=== PATIENT | male | born 1950 | race Caucasian/White ===

== ENCOUNTER 2022-07-13 10:44 | Observation (INO) | payer MEDICARE, MEDICAID, SELFPAY ==
[2022-07-13] VITALS (12 sets, daily range): BP systolic 150–188; BP diastolic 68–86; PULSE 52–65; RESP 16–18; TEMP 36.6–37.3; O2SAT 93–98; BMI 27.3
[2022-07-13 12:25] LABS: Add Manual Diff / Slide Review NO; Basophils Absolute Auto 100 /uL (0-100); Basophils Percent Auto 0.6 % (0-2); Eosinophils Absolute Auto 100 /uL (0-450); Eosinophils Percent Auto 0.5 % (2-4); Hematocrit 34.3 % (41-53); Hemoglobin 11.6 g/dL (13.5-17.5); Lymphocytes Absolute Auto 600 /uL (1100-4500); Lymphocytes Percent Auto 5.4 % (25-40); Mean Corpuscular HGB Conc 33.9 % (30-36); Mean Corpuscular Hemoglobin 29.5 PG (26-34); Monocytes Absolute Auto 600 /uL (0-900); Monocytes Percent Auto 5.5 % (3-14); Neutrophils Absolute Auto 9800 /uL (1500-7000); Platelet Count 260 X10^3/uL (150-400); Red Blood Cell Count 3.95 X10^6/uL (4.5-5.9); Red Cell Distribution Width 13.6 % (11.6-14.8); White Blood Cell Count 11.1 X10^3/uL (4.5-11.0)
[2022-07-13 12:33] LABS: Alanine Aminotransferase 15 IU/L (<50); Albumin 3.8 g/dL (3.5-5.0); Albumin Globulin Ratio 1.5 (1.0-2.8); Alkaline Phosphatase 93 U/L (38-126); Aspartate Aminotransferase 33 IU/L (17-59); BUN Creatinine Ratio 22.1 (6-22); Bilirubin Total 1.1 mg/dL (0.2-1.3); Blood Urea Nitrogen 23 mg/dL (9-20); Calcium 8.5 mg/dL (8.4-10.2); Carbon Dioxide 25 mmol/L (22-32); Chloride 95 mmol/L (98-107); Estimated Glomerular Filt Rate > 60 mL/min (>60); Globulin 2.5 g/dL (1.7-4.1); Glucose 330 mg/dL (80-110); HEMOLYSIS 25 (0-50); Lipase 22 U/L (23-300); Potassium 4.5 mmol/L (3.4-5.1); Sodium 130 mmol/L (137-145); Total Protein 6.3 g/dL (6.3-8.2)
--- NOTE | 2022-07-13 13:48 | DI.CT.S_ITS ---
PROCEDURE: CT ABDOMEN PELVIS W CON INDICATIONS: pain bloating TECHNIQUE: After the administration of intravenous contrast, axial sections acquired from the lung bases to the pubic symphysis. Coronal and sagittal reformats were performed. For radiation dose reduction, the following was used: automated exposure control, adjustment of mA and/or kV according to patient size. COMPARISON: None. FINDINGS: Image quality: Excellent. Lung bases: Atelectasis is present in the dependent lung bases. Heart: No significant findings. ABDOMEN: Liver: Unremarkable. Gallbladder: A 2.2 cm calcified gallstone is present in the gallbladder fundus. No gallbladder wall thickening or pericholecystic fluid. Biliary ducts: Unremarkable. Pancreas: The pancreas is markedly atrophic. Spleen: Unremarkable. Adrenal Glands: Unremarkable. Kidneys and Ureters: Unremarkable. Stomach and Bowel: The distal esophagus is patulous and fluid-filled. There is a moderate hiatal hernia. The stomach is markedly distended with food material and gas. There is marked gaseous distension of the small bowel. There is a combination of solid-appearing and liquid stool throughout the distended small bowel. The distal small bowel is decompressed with the transition point in the right lower quadrant (series 2/image 60). There is no discrete extrinsic mass in this region or intraluminal mass visualized. No pneumatosis. There are extensive sigmoid colon diverticular outpouchings present. No mucosal thickening or pericolonic fat stranding. A moderate amount of stool is present throughout the colon. No mucosal thickening. The appendix is thin walled and gas filled. Peritoneum: A small amount of low-density fluid is present surrounding the dilated small bowel. Ventral Wall: No hernias. Abdominal Nodes: No retroperitoneal or mesenteric adenopathy by size criteria. Vessels: Aorta and inferior vena cava are normal in size. There are scattered atheromatous calcifications throughout the aorta and iliac arteries bilaterally. PELVIS: Pelvic Organs: Unremarkable. Bladder: Unremarkable. Pelvic Nodes: No enlarged lymph nodes. Miscellaneous: No hernias are seen. Bones: Unremarkable. IMPRESSION: 1. Small-bowel obstruction or ileus with the transition point located in the right lower quadrant in the distal aspect of the ilium. There is relatively tapered narrowing of the decompressed bowel without mass lesion or extrinsic compression visualized. 2. Decompressed colon with a moderate amount of stool present and extensive diverticulosis. No acute diverticulitis. 3. Normal appendix. Dictated by: Nikkie Arrieta M.D. on 07/13/2022 at 14:24 Approved by: Nikkie Arrieta M.D. on 07/13/2022 at 14:32
--- NOTE | 2022-07-13 13:48 | ED_ITS ---
HPI - Abdominal Pain General Chief Complaint: Abdominal Pain Stated Complaint: abd pain bloating Time Seen by Provider: 07/13/22 11:59 Source: patient Mode of arrival: Ambulatory History of Present Illness HPI narrative: Patient is a 71-year-old male with remote history of IVDA clean for 20+ years, diabetes presents today with abdominal pain and distension. Admits to drinking alcohol 2 days ago. However today feels extra noted. Slightly nauseous no vomiting. Today had a very small bowel movement. Denies any fever chills. No chest pain or shortness of breath. He overall just feels like a dull ache. Recent infection with COVID but did receive paxlovid. Overall feels like he is doing better. He has no prior abdominal surgerys, however does sound like he has had lipomas removed. Related Data Home Medications Medication Instructions Recorded Confirmed amlodipine 10 mg tablet 10 mg PO DAILY 07/13/22 07/13/22 atorvastatin 20 mg tablet 20 mg PO DAILY 07/13/22 07/13/22 chlorthalidone 25 mg tablet 25 mg PO DAILY 07/13/22 07/13/22 gabapentin 300 mg capsule 300 mg PO TID 07/13/22 07/13/22 insulin glargine 100 unit/mL (3 28 unit SUBCUT DAILY 07/13/22 07/13/22 mL) subcutaneous pen (Lantus Solostar U-100 Insulin) insulin lispro 100 unit/mL See Rx Instructions .Route .COMPLEX 07/13/22 07/13/22 subcutaneous pen (Humalog KwikPen (U-100) Insulin) latanoprost 0.005 % eye drops 1 drp EYE-BOTH BEDTIME 07/13/22 07/13/22 lisinopril 40 mg tablet 40 mg PO BID 07/13/22 07/13/22 naproxen 500 mg tablet 500 mg PO BID PRN Pain (Scale 07/13/22 07/13/22 Score 4-6) oxybutynin chloride 5 mg 5 mg PO DAILY 07/13/22 07/13/22 tablet,extended release 24 hr trazodone 150 mg tablet 150 mg PO DAILY 07/13/22 07/13/22 Allergies Allergy/AdvReac Type Severity Reaction Status Date / Time No Known Drug Allergies Allergy Verified 07/13/22 11:15 Review of Systems Review of Systems Narrative: GENERAL: Denies chills, fatigue, malaise, fever, sweats, travel HEENT: Denies sinus pain, ear pain, sore throat, difficulty swallowing, neck pain RESPIRATORY: Denies dyspnea, cough, wheezing, hemoptysis, sputum. CARDIOVASCULAR: Denies chest pain, palpitations, orthopnea, edema GASTROINTESTINAL: See HPI : Denies dysuria, frequency, incontinence, hematuria, urinary retention, flank pain. MUSCULOSKELETAL: Denies weakness, joint pain, or bony pain SKIN: No rash, no erythema, no pruritus NEUROLOGIC: Denies weakness, dizziness, headache, numbness, change in speech, confusion PSYCHIATRIC: No concerning psychosocial issues. 12 point review of systems is negative except for those stated above and HPI Patient History Medical History (Updated 07/14/22 @ 02:34 by GIGI Bucio-YAMIL) COVID-19 virus infection Diabetic neuropathy Essential hypertension Hyperlipidemia associated with type 2 diabetes mellitus Insomnia Insulin dependent type 2 diabetes mellitus Surgical History (Updated 07/14/22 @ 02:34 by GIGI Bucio-YAMIL) History of ankle surgery Family History (Updated 07/14/22 @ 02:34 by GIGI Bucio-YAMIL) Mother Hypertension Sister Cancer Social History household members: significant other Smoking Status: Former smoker alcohol intake: current alcohol intake frequency: 0-2 drinks per day Substance Use Type: does not use Exam Initial Vital Signs Initial Vital Signs: Vital Signs Temperature 98.1 F 07/13/22 11:07 Pulse Rate 61 07/13/22 11:07 Respiratory Rate 18 07/13/22 11:07 Blood Pressure 176/80 H 07/13/22 11:07 Pulse Oximetry 97 07/13/22 11:07 Oxygen Delivery Method 07/13/22 11:07 GENERAL: Alert 71-year-old male appears and in no acute distress. HEENT: Head atraumatic,EOMI, pupils reactive, face symmetric, moist mucous membranes CARDIOVASCULAR: Regular rate and rhythm without murmurs, rubs or gallops. RESPIRATORY: Breath sounds equal bilaterally, no wheezes rales or rhonchi. ABDOMEN: Distended increased bowel sounds no scar diffusely tender, no fluid wave EXTREMITIES: Normal range of motion, no clubbing or edema. Neurovascularly intact NEUROLOGICAL: Alert and oriented x4.Normal gait and speech. SKIN: Warm, dry, no laceration, no petechiae, no rashes or lesions. Course Orders Ordered: Acetaminophen (Acetaminophen 325 Mg Tablet) 650 mg PO Q4H PRN PRN Reason: Fever/Mild Pain (1-3) Dextrose (Dextrose 50 % In Water 25 Gm/50 Ml Syringe) 25 gm IV PRN PRN PRN Reason: Hypoglycemia Fluticasone Propionate (Fluticasone 120 Blanco/16 Gm Blanco.Susp) 1 spray NASAL BID [facility] Last Admin: 07/14/22 03:35 Dose: 1 spray Documented By: RAKESH Heparin Sodium (Porcine) (Heparin 5,000 Unit/Ml Vial) 5,000 unit SUBCUT BID [facility] Last Admin: 07/13/22 20:38 Dose: 5,000 unit Documented By: TORI Sodium Chloride (Normal Saline 0.9%) 1,000 mls @ 100 mls/hr IV CONT [facility] Last Admin: 07/14/22 04:30 Dose: 100 mls/hr Documented By: Infusion: 07/14/22 03:52 Dose: 0 mls/hr Documented By: Admin: 07/13/22 17:52 Dose: 100 mls/hr Documented By: TORI Insulin Human Lispro (Insulin Lispro 100 Unit/Ml 3ml Vial) 0 unit SUBCUT ACHS [facility]; Protocol Morphine Sulfate (Morphine 2 Mg/Ml Inj) 2 mg IV Q4H PRN PRN Reason: Pain, Moderate (4-6) Ondansetron HCl (Ondansetron 4 Mg/2 Ml Inj) 4 mg IV Q4HR PRN PRN Reason: Nausea And Vomiting Trazodone HCl (Trazodone 50 Mg Tablet) 150 mg PO BEDTIME [facility] Last Admin: 07/13/22 23:23 Dose: 150 mg Documented By: IZA Discontinued Medications Hydromorphone HCl (Hydromorphone 1 Mg Inj) 1 mg IV NOW ONE Stop: 07/13/22 13:49 Last Admin: 07/13/22 14:12 Dose: 1 mg Documented By: THEO Hydromorphone HCl (Hydromorphone 1 Mg Inj) 1 mg IV NOW ONE Stop: 07/13/22 15:54 Last Admin: 07/13/22 16:10 Dose: 1 mg Documented By: SAVANNA Sodium Chloride (Normal Saline 0.9%) 1,000 mls @ 150 mls/hr IV CONT [facility] Last Admin: 07/13/22 16:10 Dose: 150 mls/hr Documented By: SAVANNA Metoprolol Tartrate (Metoprolol Tartrate 5 Mg/5 Ml Inj) 5 mg IV Q5M PRN PRN Reason: Hypertension Stop: 07/14/22 03:11 Pantoprazole Sodium (Pantoprazole 40 Mg Vial) 20 mg IV NOW ONE Stop: 07/13/22 23:06 Last Admin: 07/13/22 23:23 Dose: 20 mg Documented By: IZA Vital Signs Vital signs: Vital Signs - 8 hr 07/13/22 11:07 Temperature 98.1 F Pulse Rate 61 Respiratory Rate 18 Blood Pressure 176/80 H Pulse Oximetry 97 Oxygen Delivery Method Room Air MDM - Abdominal Pain Lab Data Result diagrams: 07/14/22 05:23 07/14/22 05:23 Labs: Lab Results 07/13/22 07/13/22 07/13/22 Range/Units 11:55 11:55 11:55 WBC 11.1 H (4.5-11.0) X10^3/uL RBC 3.95 L (4.5-5.9) X10^6/uL Hgb 11.6 L (13.5-17.5) g/dL Hct 34.3 L (41-53) % MCV 87.0 (80-100) fL MCH 29.5 (26-34) PG MCHC 33.9 (30-36) % RDW 13.6 (11.6-14.8) % Plt Count 260 (150-400) X10^3/uL Neut % (Auto) 88.0 H (50-75) % Lymph % (Auto) 5.4 L (25-40) % [place] % (Auto) 5.5 (3-14) % Eos % (Auto) 0.5 L (2-4) % Baso % (Auto) 0.6 (0-2) % Neut # (Auto) 9800 H (9585-4812) /uL Lymph # (Auto) 600 L (1966-2690) /uL [place] # (Auto) 600 (0-900) /uL Eos # (Auto) 100 (0-450) /uL Baso # (Auto) 100 (0-100) /uL Sodium 130 L (137-145) mmol/L Potassium 4.5 (3.4-5.1) mmol/L Chloride 95 L (98-107) mmol/L Carbon Dioxide 25 (22-32) mmol/L BUN 23 H (9-20) mg/dL Creatinine 1.04 (0.66-1.25) mg/dL Estimated GFR > 60 (>60) mL/min BUN/Creatinine Ratio 22.1 H (6-22) Glucose 330 H (80-110) mg/dL Hemoglobin A1c (4.0-6.0) % Lactate 1.2 (0.7-2.1) mmol/L Calcium 8.5 (8.4-10.2) mg/dL Total Bilirubin 1.1 (0.2-1.3) mg/dL AST 33 (17-59) IU/L ALT 15 (<50) IU/L Alkaline Phosphatase 93 (38-126) U/L Total Protein 6.3 (6.3-8.2) g/dL Albumin 3.8 (3.5-5.0) g/dL Globulin 2.5 (1.7-4.1) g/dL Albumin/Globulin Ratio 1.5 (1.0-2.8) Lipase 22 L (23-300) U/L 07/13/22 Range/Units 11:55 WBC (4.5-11.0) X10^3/uL RBC (4.5-5.9) X10^6/uL Hgb (13.5-17.5) g/dL Hct (41-53) % MCV (80-100) fL MCH (26-34) PG MCHC (30-36) % RDW (11.6-14.8) % Plt Count (150-400) X10^3/uL Neut % (Auto) (50-75) % Lymph % (Auto) (25-40) % [place] % (Auto) (3-14) % Eos % (Auto) (2-4) % Baso % (Auto) (0-2) % Neut # (Auto) (6500-0199) /uL Lymph # (Auto) (9703-4125) /uL [place] # (Auto) (0-900) /uL Eos # (Auto) (0-450) /uL Baso # (Auto) (0-100) /uL Sodium (137-145) mmol/L Potassium (3.4-5.1) mmol/L Chloride (98-107) mmol/L Carbon Dioxide (22-32) mmol/L BUN (9-20) mg/dL Creatinine (0.66-1.25) mg/dL Estimated GFR (>60) mL/min BUN/Creatinine Ratio (6-22) Glucose (80-110) mg/dL Hemoglobin A1c 8.4 H (4.0-6.0) % Lactate (0.7-2.1) mmol/L Calcium (8.4-10.2) mg/dL Total Bilirubin (0.2-1.3) mg/dL AST (17-59) IU/L ALT (<50) IU/L Alkaline Phosphatase (38-126) U/L Total Protein (6.3-8.2) g/dL Albumin (3.5-5.0) g/dL Globulin (1.7-4.1) g/dL Albumin/Globulin Ratio (1.0-2.8) Lipase (23-300) U/L Imaging Data CT scan - abdomen/pelvis: Radiologist's Impression: Signed Patient: Andrew Wilcox MR#: [id number] : 1950 Acct:[id number] Age/Sex: 71 / M Date of Service: 07/13/22 Loc: ED Accession Number: [id number] ?? Procedure: CT abdomen pelvis w con Ordering Provider: Sarika Bardales D.O. PROCEDURE:? CT ABDOMEN PELVIS W CON ? INDICATIONS:? pain bloating ? TECHNIQUE:? After the administration of intravenous contrast, axial sections acquired from the lung bases to the pubic symphysis.? Coronal and sagittal reformats were performed.? For radiation dose reduction, the following was used:? automated exposure control, adjustment of mA and/or kV according to patient size.? ? COMPARISON:? None. ? FINDINGS:? Image quality:? Excellent.? ? Lung bases:? Atelectasis is present in the dependent lung bases. Heart:? No significant findings. ? ABDOMEN: Liver:? Unremarkable.? ? Gallbladder:? A 2.2 cm calcified gallstone is present in the gallbladder fundus.? No gallbladder wall thickening or pericholecystic fluid. Biliary ducts:? Unremarkable.? ? Pancreas:? The pancreas is markedly atrophic. Spleen:? Unremarkable.? ? Adrenal Glands:? Unremarkable.? ? Kidneys and Ureters:? Unremarkable.? ? ? Stomach and Bowel:? The distal esophagus is patulous and fluid-filled.? There is a moderate hiatal hernia.? The stomach is markedly distended with food material and gas.? There is marked gaseous distension of the small bowel.? There is a combination of solid-appearing and liquid stool throughout the distended small bowel.? The distal small bowel is decompressed with the transition point in the right lower quadrant (series 2/image 60).? There is no discrete extrinsic mass in this region or intraluminal mass visualized.? No pneumatosis.? There are extensive sigmoid colon diverticular outpouchings present.? No mucosal thickening or pericolonic fat stranding.? A moderate amount of stool is present throughout the colon.? No mucosal thickening. The appendix is thin walled and gas filled. Peritoneum:? A small amount of low-density fluid is present surrounding the dilated small bowel. ? Ventral Wall: ? No hernias.? Abdominal Nodes:? No retroperitoneal or mesenteric adenopathy by size criteria.? Vessels:? Aorta and inferior vena cava are normal in size.? There are scattered atheromatous calcifications throughout the aorta and iliac arteries bilaterally. ? ? PELVIS: Pelvic Organs:? Unremarkable.? ? Bladder:? Unremarkable.? ? Pelvic Nodes: No enlarged lymph nodes.? Miscellaneous: No hernias are seen. ? ? ? Bones:? Unremarkable.? IMPRESSION:? ? 1.? Small-bowel obstruction or ileus with the transition point located in the right lower quadrant in the distal aspect of the ilium.? There is relatively tapered narrowing of the decompressed bowel without mass lesion or extrinsic compression visualized.? ? 2. Decompressed colon with a moderate amount of stool present and extensive diverticulosis.? No acute diverticulitis.? ? 3. Normal appendix.? ? Dictated by: Nikkie Arrieta M.D. on 07/13/2022 at 14:24 ?? ECG Data Interpretation: Sinus rhythm 65. Normal at 68 QRS 152 QTC 499 right bundle-branch block noted no priors to compare MDM Narrative Medical decision making narrative: Patient is found to have small-bowel obstruction on CT with a transition point. No prior surgeries. Dilaudid has helped quite a bit with his pain. She has minor leukocytosis no fever. Patient is still COVID positive but is asymptomatic, I think unlikely a rebound or infection from Paxlovid Dr. Barrett updated patient's symptoms CT results states no NG at this time Dr. Howard, accepts patient Discharge Plan Departure Patient Disposition: Admitted as Observation Clinical Impression: SBO (small bowel obstruction) Admit Date/Time: 07/13/22 15:19 Admit Provider: Bayron Howard
[2022-07-13] MEDS: HYDROMORPHONE 1 MG INJ IV ×2 (14:12→16:10)
[2022-07-13 14:53] LABS: Lactate (Lactic Acid) 1.2 mmol/L (0.7-2.1)
[2022-07-13] MEDS: SODIUM CHLORIDE 0.9% 1,000 ML 150 ML IV (16:10)
[2022-07-13 16:42] LABS: COVID19 -Nasal RAPID POSITIVE (Negative)
--- NOTE | 2022-07-13 17:13 | PM.CN ---
History of Present Illness Consult details Date Patient Seen: 07/13/22 Time Patient Seen: 17:13 Chief complaint: abd pain bloating Narrative: Andrew is a 71-year-old man with insulin-dependent diabetes from [facility] who is here for the [employer] festival who presented with about 1 day of abdominal pain and distention. He had 1 episode of vomiting[address] A CT scan here showed obstruction versus ileus. He reports that he has had some bowel movements and some flatus but is less than his usual. He also had a diagnosis of COVID last week and had taken Paxil COVID. He continues to test positive today. He is never had prior abdominal surgery. Meds Home Medications and Allergies Home Medications Medication Instructions Recorded Confirmed Type amlodipine 10 mg tablet 10 mg PO DAILY 07/13/22 07/13/22 History atorvastatin 20 mg tablet 20 mg PO DAILY 07/13/22 07/13/22 History chlorthalidone 25 mg tablet 25 mg PO DAILY 07/13/22 07/13/22 History gabapentin 300 mg capsule 300 mg PO TID 07/13/22 07/13/22 History insulin lispro 100 unit/mL unit SUBCUT 07/13/22 History subcutaneous pen (Humalog KwikPen (U-100) Insulin) trazodone 150 mg tablet 150 mg PO DAILY 07/13/22 07/13/22 History Allergies Allergy/AdvReac Type Severity Reaction Status Date / Time No Known Drug Allergies Allergy Verified 07/13/22 11:15 Exam Vital Signs (past 8 hours): - 07/13/22 11:07 07/13/22 13:05 07/13/22 13:06 Temperature 98.1 F Pulse Rate 61 60 60 Respiratory Rate 18 Blood Pressure 176/80 H Pulse Oximetry 97 97 97 Oxygen Delivery Method Room Air 07/13/22 13:06 07/13/22 13:30 07/13/22 13:31 Temperature Pulse Rate 61 Respiratory Rate Blood Pressure 151/78 H 165/86 H Pulse Oximetry 96 Oxygen Delivery Method 07/13/22 13:31 07/13/22 14:09 07/13/22 14:10 Temperature Pulse Rate 61 65 65 Respiratory Rate Blood Pressure Pulse Oximetry 96 96 97 Oxygen Delivery Method 07/13/22 14:10 07/13/22 14:30 07/13/22 15:00 Temperature Pulse Rate 64 60 Respiratory Rate Blood Pressure 188/80 H Pulse Oximetry 93 96 Oxygen Delivery Method Oxygen Delivery Method Room Air Narrative Exam Narrative: Abdomen distended with mild diffuse tenderness No Copeland sign Objective Labs Result Diagrams: 07/13/22 11:55 07/13/22 11:55 Labs: Laboratory Results - last 24 hr 07/13/22 07/13/22 07/13/22 11:55 11:55 11:55 WBC 11.1 H RBC 3.95 L Hgb 11.6 L Hct 34.3 L MCV 87.0 MCH 29.5 MCHC 33.9 RDW 13.6 Plt Count 260 Neut % (Auto) 88.0 H Lymph % (Auto) 5.4 L [place] % (Auto) 5.5 Eos % (Auto) 0.5 L Baso % (Auto) 0.6 Neut # (Auto) 9800 H Lymph # (Auto) 600 L [place] # (Auto) 600 Eos # (Auto) 100 Baso # (Auto) 100 Sodium 130 L Potassium 4.5 Chloride 95 L Carbon Dioxide 25 BUN 23 H Creatinine 1.04 Estimated GFR > 60 BUN/Creatinine Ratio 22.1 H Glucose 330 H Lactate 1.2 Calcium 8.5 Total Bilirubin 1.1 AST 33 ALT 15 Alkaline Phosphatase 93 Total Protein 6.3 Albumin 3.8 Globulin 2.5 Albumin/Globulin Ratio 1.5 Lipase 22 L SARS-CoV-2 (PCR) 07/13/22 15:45 WBC RBC Hgb Hct MCV MCH MCHC RDW Plt Count Neut % (Auto) Lymph % (Auto) [place] % (Auto) Eos % (Auto) Baso % (Auto) Neut # (Auto) Lymph # (Auto) [place] # (Auto) Eos # (Auto) Baso # (Auto) Sodium Potassium Chloride Carbon Dioxide BUN Creatinine Estimated GFR BUN/Creatinine Ratio Glucose Lactate Calcium Total Bilirubin AST ALT Alkaline Phosphatase Total Protein Albumin Globulin Albumin/Globulin Ratio Lipase SARS-CoV-2 (PCR) Positive H Assessment & Plan Assessment and plan (1) Ileus due to infection: Status: Acute Plan Favor ileus over obstruction since he has no prior abdominal surgery and he does continue to have some flatus and bowel function although it is decreased from his baseline. Admit to hospitalist for observation and blood sugar control. If he starts vomiting significantly he should have an NG tube placed. Time Spent With Patient Critical Care time: I spent a total of [] minutes of critical care time on this patient's care today; this time is exclusive of procedural time.
[2022-07-13] MEDS: SODIUM CHLORIDE 0.9% 1,000 ML 100 ML IV (17:52)
[2022-07-13] MEDS: HEPARIN 5,000 UNIT/ML VIAL 5000 UNIT SUBCUT (20:38)
[2022-07-13] MEDS: TRAZODONE 50 MG TABLET 150 MG PO (23:23)
[2022-07-13] MEDS: PANTOPRAZOLE 40 MG VIAL 20 MG IV (23:23)
[2022-07-14] VITALS: BP 140/67; PULSE 64; RESP 19; TEMP 37.4; O2SAT 96
[2022-07-14 00:11] LABS: Hemoglobin A1C% w Est Avg Glu 8.4 % (4.0-6.0)
[2022-07-14 01:00] VITALS: O2SAT 96
--- NOTE | 2022-07-14 01:40 | PM.HP.1 ---
History of Present Illness History of Present Illness Date Patient Seen: 07/13/22 Time Patient Seen: 17:28 Chief complaint: abd pain bloating Narrative: Andrew Wilcox is a?71-year-old male with remote history of IVDA clean for 20+ years, insulin diabetes, HTN, HLD, and insomnia who was in town for motorcycle rally who presented to ED with abdominal pain and distension x 1day.? Admits to drinking alcohol 2 days ago. ? Slightly nauseous no vomiting.? Today had a very small bowel movement, and passing gas.? Denies any fever, body aches, chills, chest pain, shortness of breath.? He overall just feels like a dull ache.? Recent infection with COVID but did receive paxlovid.? Overall feels like he is doing better.? He denies prior abdominal surgeries, GI bleeds, gastric ulcers, blood in urine or stool. Patient does complain of acid reflux symptoms. In ED patient's temp 98.1?, HR 61, RR 18, BP 176/80, O2 saturation 97% on room air. Upon admit a mild temperature temp 99.2?, BP 150/68, HR 52, RR 18, O2 saturation 97% on room air. WBC 11.1, small left shift neutrophils 9800, H&H 11.6/34.3, sodium 130, chloride 95, BUN 23, glucose 330, no DKA or gap noted, lactate lipase are normal, COVID is positive. CT of abdomen pelvis demonstrate small-bowel obstruction versus ileus in the transition point right lower quadrant distal aspect ileum also noted tapered narrowing of decompressed bowel without mass, moderate stool, diverticulosis without diverticulitis. Patient admitted for small-bowel bowel obstruction versus ileus, positive COVID, hyponatremia, hyperglycemia. Patient History Medical History (Updated 07/14/22 @ 02:34 by TERE Bucio) COVID-19 virus infection Diabetic neuropathy Essential hypertension Hyperlipidemia associated with type 2 diabetes mellitus Insomnia Insulin dependent type 2 diabetes mellitus Surgical History (Updated 07/14/22 @ 02:34 by TERE Bucio) History of ankle surgery Family & Social History Family History (Updated 07/14/22 @ 02:34 by TERE Bucio) Mother Hypertension Sister Cancer Social History: household members significant other Prior Living Arrangements House Safety & Behavioral: Feels Safe in Current Yes Environment Been Physically Hurt or No Threatened By a Person Tobacco & Substance use: Smoking Status Former smoker alcohol intake current alcohol intake frequency a few times a month Substance Use Type marijuana,painkillers HX of IVDU Meds Home Medications and Allergies Home Medications Medication Instructions Recorded Confirmed Type amlodipine 10 mg tablet 10 mg PO DAILY 07/13/22 07/13/22 History atorvastatin 20 mg tablet 20 mg PO DAILY 07/13/22 07/13/22 History chlorthalidone 25 mg tablet 25 mg PO DAILY 07/13/22 07/13/22 History gabapentin 300 mg capsule 300 mg PO TID 07/13/22 07/13/22 History insulin glargine 100 unit/mL (3 28 unit SUBCUT DAILY 07/13/22 07/13/22 History mL) subcutaneous pen (Lantus Solostar U-100 Insulin) insulin lispro 100 unit/mL See Rx Instructions .Route .COMPLEX 07/13/22 07/13/22 History subcutaneous pen (Humalog KwikPen (U-100) Insulin) latanoprost 0.005 % eye drops 1 drp EYE-BOTH BEDTIME 07/13/22 07/13/22 History lisinopril 40 mg tablet 40 mg PO BID 07/13/22 07/13/22 History naproxen 500 mg tablet 500 mg PO BID PRN Pain (Scale 07/13/22 07/13/22 History Score 4-6) oxybutynin chloride 5 mg 5 mg PO DAILY 07/13/22 07/13/22 History tablet,extended release 24 hr trazodone 150 mg tablet 150 mg PO DAILY 07/13/22 07/13/22 History Allergies Allergy/AdvReac Type Severity Reaction Status Date / Time No Known Drug Allergies Allergy Verified 07/13/22 11:15 Review of Systems Review of Systems Narrative: All 12 point systems reviewed with the patient and are negative except otherwise documented. Exam Vital Signs (past 8 hours): - 07/13/22 20:00 07/13/22 19:00 07/13/22 21:28 Temperature 99.2 F Pulse Rate 52 L Respiratory Rate 18 Blood Pressure 150/68 H Pulse Oximetry 97 97 Oxygen Delivery Method Room Air Room Air Oxygen Flow Rate 0 07/14/22 00:00 07/14/22 01:00 Temperature 99.4 F Pulse Rate 64 Respiratory Rate 19 Blood Pressure 140/67 Pulse Oximetry 96 96 Oxygen Delivery Method Room Air Oxygen Flow Rate 0 Oxygen Delivery Method Room Air Oxygen Flow Rate 0 Narrative Exam Narrative: GENERAL:? Alert 71-year-old male appears and in no acute distress. HEENT: Head atraumatic,EOMI, pupils reactive, face symmetric, moist mucous membranes CARDIOVASCULAR: Regular rate and rhythm without murmurs, rubs or gallops. RESPIRATORY: Breath sounds equal bilaterally, no wheezes rales or rhonchi. ABDOMEN:? Distended increased bowel sounds no scar diffusely tender, no fluid wave EXTREMITIES: Normal range of motion, no clubbing or edema.? Neurovascularly intact NEUROLOGICAL: Alert and oriented x4.Normal gait and speech. SKIN: Warm, dry, no laceration, no petechiae, no rashes or lesions. Objective Labs Result Diagrams: 07/13/22 11:55 07/13/22 11:55 Labs: Laboratory Results - last 24 hr 07/13/22 07/13/22 07/13/22 11:55 11:55 11:55 WBC 11.1 H RBC 3.95 L Hgb 11.6 L Hct 34.3 L MCV 87.0 MCH 29.5 MCHC 33.9 RDW 13.6 Plt Count 260 Neut % (Auto) 88.0 H Lymph % (Auto) 5.4 L [place] % (Auto) 5.5 Eos % (Auto) 0.5 L Baso % (Auto) 0.6 Neut # (Auto) 9800 H Lymph # (Auto) 600 L [place] # (Auto) 600 Eos # (Auto) 100 Baso # (Auto) 100 Sodium 130 L Potassium 4.5 Chloride 95 L Carbon Dioxide 25 BUN 23 H Creatinine 1.04 Estimated GFR > 60 BUN/Creatinine Ratio 22.1 H Glucose 330 H Hemoglobin A1c Lactate 1.2 Calcium 8.5 Total Bilirubin 1.1 AST 33 ALT 15 Alkaline Phosphatase 93 Total Protein 6.3 Albumin 3.8 Globulin 2.5 Albumin/Globulin Ratio 1.5 Lipase 22 L SARS-CoV-2 (PCR) 07/13/22 07/13/22 11:55 15:45 WBC RBC Hgb Hct MCV MCH MCHC RDW Plt Count Neut % (Auto) Lymph % (Auto) [place] % (Auto) Eos % (Auto) Baso % (Auto) Neut # (Auto) Lymph # (Auto) [place] # (Auto) Eos # (Auto) Baso # (Auto) Sodium Potassium Chloride Carbon Dioxide BUN Creatinine Estimated GFR BUN/Creatinine Ratio Glucose Hemoglobin A1c 8.4 H Lactate Calcium Total Bilirubin AST ALT Alkaline Phosphatase Total Protein Albumin Globulin Albumin/Globulin Ratio Lipase SARS-CoV-2 (PCR) Positive H Assessment & Plan Assessment & Plan narrative: Andrew Wilcox is a?71-year-old male with remote history of IVDA clean for 20+ years, insulin diabetes, HTN, HLD, and insomnia who was in town for motorcycle rally who presented to ED with abdominal pain and distension, patient admitted for small-bowel obstruction versus ileus, positive asymptomatic COVID-19 infection, hyponatremia, and hyperglycemia in the setting of insulin-dependent diabetes. 1. Small-bowel obstruction versus ileus, acute, present on admit - Dr. Barrett general surgery consulted, and saw the patient in the ED:Favor ileus over obstruction since he has no prior abdominal surgery and he does continue to have some flatus and bowel function although it is decreased from his baseline.? Admit to hospitalist for observation and blood sugar control.? If he starts vomiting significantly he should have an NG tube placed. -NPO -gentle rehydration NS at 100 -Zofran antiemetic for nausea, tylenol for fever. -Protonix IV for acid reflux symptoms -holding all p.o. medications, with the exception of trazodone with sip of water at bedtime. -monitor inflammatory markers, CBC, chemistry panel 2. COVID positive infection, asymptomatic, present on admission -previously treated with paxlovid on prior recent COVID infection -today patient is asymptomatic does not require oxygenation and does not qualify for treatment protocol. -patient under isolation protocol 3. Hyponatremia, acute, present on admission -sodium 130 on admission -gentle rehydration NS at 100 cc/HR -trend sodium 4. Hyperglycemia in the setting insulin-dependent type 2 diabetes with neuropathy, acute on chronic, present on admission -admit glucose 330-A1c ordered -patient admitted under diabetic protocols -blood sugar checks q.6 hours while NPO-use low-dose sliding scale cautiously while NPO, once eating changed to a.c. HS -once patient is eating re-initiate Lantus and Humalog 5. Hypertension, essential, acute on chronic, uncontrolled present on admission -176/80, 150/68, 188/80 -holding amlodipine/chlorthalidone/lisinopril while patient is NPO - IV metoprolol while NPO 6. Hyperlipidemia related to type 2 diabetes, chronic, present on admission -holding Lipitor while NPO 7. Insomnia, chronic, present on admission -continue trazodone with sip of water 8. Overweight as evidence by BMI of 27.4, acute on chronic, present on admission -no dietary consult placed at this time- wait for resolution of acute SBO Code status:Full Surrogate decision maker: Jennifer Marquez Life Partner COVID PCR:POSITIVE 07/14/2022-prior positive PCR-tx w/Paxlovid DVT/VTE prophylaxis:Heparin & SCD's Disposition: Patient admitted for observation expected length of stay less than 2 midnights. I have utilized all available immediate resources to obtain, update, or review the patient's current medications. I confirmed that the patient's advanced care plan is present, Code status is documented and/or surrogate decision maker is listed in the patient's medical record. Time Spent With Patient Critical Care time: I spent a total of [] minutes of critical care time on this patient's care today; this time is exclusive of procedural time. Quality VTE Deep Vein Thrombosis/Pulmonary Embolism Present on Admission: No
[2022-07-14] MEDS: FLUTICASONE 120 SPRAY/16 GM SPRAY.SUSP NASAL ×2 (03:35→09:36)
[2022-07-14 04:00] VITALS: BP 124/70; PULSE 60; RESP 23; TEMP 36.8; O2SAT 93; O2SAT 96
[2022-07-14] MEDS: SODIUM CHLORIDE 0.9% 1,000 ML 100 ML IV (04:30)
[2022-07-14 05:54] LABS: Add Manual Diff / Slide Review NO; Basophils Absolute Auto 0 /uL (0-100); Basophils Percent Auto 0.4 % (0-2); Eosinophils Absolute Auto 100 /uL (0-450); Hematocrit 30.9 % (41-53); Hemoglobin 10.5 g/dL (13.5-17.5); Lymphocytes Absolute Auto 700 /uL (1100-4500); Mean Corpuscular HGB Conc 33.9 % (30-36); Mean Corpuscular Hemoglobin 29.5 PG (26-34); Mean Corpuscular Volume 86.9 fL (80-100); Monocytes Absolute Auto 600 /uL (0-900); Monocytes Percent Auto 8.4 % (3-14); Neutrophils Absolute Auto 5800 /uL (1500-7000); Neutrophils Percent Auto 79.2 % (50-75); Platelet Count 214 X10^3/uL (150-400); Red Blood Cell Count 3.55 X10^6/uL (4.5-5.9); Red Cell Distribution Width 13.9 % (11.6-14.8); White Blood Cell Count 7.3 X10^3/uL (4.5-11.0)
[2022-07-14 06:00] LABS: BUN Creatinine Ratio 18.8 (6-22); Blood Urea Nitrogen 18 mg/dL (9-20); Carbon Dioxide 29 mmol/L (22-32); Chloride 99 mmol/L (98-107); Estimated Glomerular Filt Rate > 60 mL/min (>60); Glucose 215 mg/dL (80-110); HEMOLYSIS < 15 (0-50); Magnesium 1.9 mg/dL (1.6-2.3); Sodium 132 mmol/L (137-145)
[2022-07-14 09:11] VITALS: BP 122/69; PULSE 63; RESP 17; TEMP 36.7; O2SAT 94
[2022-07-14] MEDS: HEPARIN 5,000 UNIT/ML VIAL 5000 UNIT SUBCUT (09:35)
[2022-07-14 11:05] VITALS: BP 131/72; PULSE 70; RESP 16; TEMP 36.4; O2SAT 96
--- NOTE | 2022-07-14 13:18 | CM.DANOTE ---
Addendum entered by Ana Alberts R.N. 07/14/22 14:26: Per , pt is medically stable for discharge. Pt to discharge home via girlfriend POV. ADJ Original Note: DCP Assessment: Payor confirmed: [facility] & Medicaid PCP Confirmed: Dr. Covarrubias @ [facility] Pt is a 71 y.o. M who presented to the ER following symptoms of abdominal pain and bloating. Pt was recently diagnosed with COVID and treated with paxlovid. Pt is still COVID+. Pt was here for the oyster run this past weekend and has his motorcycle parked at a nearby hotel. Pt was admitted for observation for management of symptoms. DCP could not enter pt room due to COVID isolation precautions. DCP able to talk with pt on the phone. DCP introduced herself and role. Pt states he lives in [place] with his girlfriend, Jennifer, who is also his emergency contact. Pt states that he was here for the oyster run and rode his motorcycle here. Pt states that his girlfriend drove the car here. Pt states that Jennifer can pick him up from the hospital when discharged. Pt states that he occasionally uses a walker but otherwise fairly independent. Pt denies any needs for resources at this time. DCP here to assist when needed. Unable to update white board due. Pt instructed to call DCP if any questions arise. Pt thankful for the call. P: Unclear at this time. If medically stable, anticipate pt to discharge home via spouse POV. Ana Alberts RN/DYLAN Discharge Planning/Care Management CM Discharge Assessment Start: 07/14/22 09:02 Freq: Status: Active Protocol: Document 07/14/22 13:17 YUN (Rec: 07/14/22 13:18 YUN [id number]) Discharge Planning Assessment Assigned Auto Body Builder Apprentice Ana Alberts RN/DYLAN Advance Directives? No History Provided By Patient Prior Living Arrangements House Household Members significant other Type of transporation used prior to Drives own vehicle admit Independent with ADL's Yes Is patient alert and oriented? Yes Caregiver for Another No DME Already Rented / Owned FWW / Walker Discharge Plan Home Transportation Arrangement Jennifer, pt girlfriend. Referrals Initiated None needed Additional Comment At this time Whiteboard Updated in Patient Room with No name and ext. # of Auto Body Builder Apprentice Comment Unable to go into pt room due to isolation precautions. Review Status In Process Please Provide Date Initial DC 07/14/22 Assessment Was Performed Next Review Type Continued Stay Review
--- NOTE | 2022-07-14 14:11 | P.DS_ITS ---
History of Present Illness History of Present Illness Date Patient Seen: 07/14/22 Chief complaint: abd pain bloating Narrative: Per Ashli Encinas, [facility]-: Andrew Wilcox is a?71-year-old male with remote history of IVDA clean for 20+ years, insulin diabetes, HTN, HLD, and insomnia who was in town for motorcycle rally who presented to ED with abdominal pain and distension x 1day.? Admits to drinking alcohol 2 days ago. ? Slightly nauseous no vomiting.? Today had a very small bowel movement, and passing gas.? Denies any fever, body aches, chills, chest pain, shortness of breath.? He overall just feels like a dull ache.? Recent infection with COVID but did receive paxlovid.? Overall feels like he is doing better.? He denies prior abdominal surgeries, GI bleeds, gastric ulcers, blood in urine or stool. Patient does complain of acid reflux symptoms. In ED patient's temp 98.1?, HR 61, RR 18, BP 176/80, O2 saturation 97% on room air. Upon admit a mild temperature temp 99.2?, BP 150/68, HR 52, RR 18, O2 saturation 97% on room air. WBC 11.1, small left shift neutrophils 9800, H&H 11.6/34.3, sodium 130, chloride 95, BUN 23, glucose 330, no DKA or gap noted, lactate lipase are normal, COVID is positive. CT of abdomen pelvis demonstrate small-bowel obstruction versus ileus in the transition point right lower quadrant distal aspect ileum also noted tapered narrowing of decompressed bowel without mass, moderate stool, diverticulosis without diverticulitis. Patient admitted for small-bowel bowel obstruction versus ileus, positive COVID, hypo natremia, hyperglycemia. Discharge Providers Provider Date of admission: 07/13/22 15:19 Discharge Date: 07/14/22 Consults: 07/13/22 15:20 Consult to General Surgery Stat Comment: Consulting Provider: Kit Barrett Reason for consultation: SBO Has provider been notified: Yes 07/13/22 21:37 Consult to Dietitian, Adult Urgent Comment: Reason For Exam: DM, BMI 27.4 Discharge provider: Bayron Howard DO Summary Hospital Course Discharge Diagnosis: 1. Small-bowel obstruction versus ileus, acute, present on admit 2. COVID positive infection, asymptomatic, present on admission 3. Hyponatremia, acute, present on admission 4. Hyperglycemia in the setting insulin-dependent type 2 diabetes with neuropathy, acute on chronic, present on admission 5. Hypertension, essential, acute on chronic, uncontrolled present on admission 6. Hyperlipidemia related to type 2 diabetes, chronic, present on admission 7. Insomnia, chronic, present on admission 8. Overweight as evidence by BMI of 27.4, acute on chronic, present on admission Hospital Course: Andrew Wilcox is a?71-year-old male with remote history of IVDA clean for 20+ years, insulin dependent diabetes, HTN, HLD, and insomnia who was in town for motorcycle rally who presented to ED with abdominal pain and distension, patient admitted for small-bowel obstruction versus ileus, positive asymptomatic COVID- 19 infection, hyponatremia, and hyperglycemia in the setting of insulin- dependent diabetes. He had rapid improvement in his symptoms the following morning. His abdominal pain had resolved and he was tolerating a diet, and had been passing gas and had bowel movements. He was discharged home and I recommend he follow up with primary care provider for review of his hospitalization. Exam Vital Signs (past 8 hours): - 07/14/22 09:11 07/14/22 11:05 Temperature 98.1 F 97.6 F Pulse Rate 63 70 Respiratory Rate 17 16 Blood Pressure 122/69 131/72 Pulse Oximetry 94 96 Oxygen Flow Rate 0 0 Oxygen Delivery Method Room Air Oxygen Flow Rate 0 Narrative Exam Narrative: GENERAL:? Alert 71-year-old male appears and in no acute distress. HEENT: Head atraumatic,EOMI, pupils reactive, face symmetric, moist mucous membranes CARDIOVASCULAR: Regular rate and rhythm without murmurs, rubs or gallops. RESPIRATORY: Breath sounds equal bilaterally, no wheezes rales or rhonchi. ABDOMEN:? S NT ND EXTREMITIES: Normal range of motion, no clubbing or edema.? Neurovascularly intact NEUROLOGICAL: Alert and oriented x4.Normal gait and speech. SKIN: Warm, dry, no laceration, no petechiae, no rashes or lesions. Objective Labs Result Diagrams: 07/14/22 05:23 07/14/22 05:23 Labs: Laboratory Results - last 24 hr 07/13/22 07/13/22 07/13/22 11:55 11:55 15:45 WBC RBC Hgb Hct MCV MCH MCHC RDW Plt Count Neut % (Auto) Lymph % (Auto) [place] % (Auto) Eos % (Auto) Baso % (Auto) Neut # (Auto) Lymph # (Auto) [place] # (Auto) Eos # (Auto) Baso # (Auto) Sodium Potassium Chloride Carbon Dioxide BUN Creatinine Estimated GFR BUN/Creatinine Ratio Glucose Hemoglobin A1c 8.4 H Lactate 1.2 Calcium Magnesium SARS-CoV-2 (PCR) Positive H 07/14/22 07/14/22 05:23 05:23 WBC 7.3 RBC 3.55 L Hgb 10.5 L Hct 30.9 L MCV 86.9 MCH 29.5 MCHC 33.9 RDW 13.9 Plt Count 214 Neut % (Auto) 79.2 H Lymph % (Auto) 10.0 L [place] % (Auto) 8.4 Eos % (Auto) 2.0 Baso % (Auto) 0.4 Neut # (Auto) 5800 Lymph # (Auto) 700 L [place] # (Auto) 600 Eos # (Auto) 100 Baso # (Auto) 0 Sodium 132 L Potassium 4.0 Chloride 99 Carbon Dioxide 29 BUN 18 Creatinine 0.96 Estimated GFR > 60 BUN/Creatinine Ratio 18.8 Glucose 215 H D Hemoglobin A1c Lactate Calcium 8.0 L Magnesium 1.9 SARS-CoV-2 (PCR) [facility] Medical History (Updated 07/14/22 @ 02:34 by GIGI Bucio-YAMIL) COVID-19 virus infection Diabetic neuropathy Essential hypertension Hyperlipidemia associated with type 2 diabetes mellitus Insomnia Insulin dependent type 2 diabetes mellitus Surgical History (Updated 07/14/22 @ 02:34 by TERE Bucio) History of ankle surgery Family History (Updated 07/14/22 @ 02:34 by TERE Bucio) Mother Hypertension Sister Cancer Social History household members: significant other Smoking Status: Former smoker alcohol intake: current Discharge Plan Discharge Plan Patient Disposition: Home Provider Discharge Comment: You were admitted to the hospital with a bowel obst ruction vs ileus. This improved with time and you quickly tolerated a diet. No medication changes are needed at this time. Discharge orders & Medications Prescriptions: Continued trazodone 150 mg tablet 150 mg PO DAILY Label Comments: TAKE ONE TABLET BY MOUTH NIGHTLY AT BEDTIME NEEDED FOR SLEEP amlodipine 10 mg tablet 10 mg PO DAILY Label Comments: TAKE 1 TABLET BY MOUTH EVERY DAY FOR BLOOD PRESSURE atorvastatin 20 mg tablet 20 mg PO DAILY chlorthalidone 25 mg tablet 25 mg PO DAILY Label Comments: TAKE ONE TABLET BY MOUTH EVERY DAY FOR BLOOD PRESSURE gabapentin 300 mg capsule 300 mg PO TID Label Comments: TAKE ONE CAPSULE BY MOUTH EVERY EIGHT HOURS insulin lispro [Humalog KwikPen Insulin] 100 unit/mL insulin pen See Rx Instructions .ROUTE .COMPLEX Label Comments: INJECT 13 UNITS SUBCUTANEOUSLY BEFORE BREAKFAST and 4 units before dinner IN ADDITION TO THE SLIDING SCALE 151-200 +2 UNITS; 201-250 +4 UNITS; 251-300 +6 UNITS; 301-350 +8 UNITS; 351-400 +10 UNITS Rx Instructions: see pt comments below insulin glargine [Lantus Solostar U-100 Insulin] 100 unit/mL (3 mL) insulin pen 28 unit SUBCUT DAILY Label Comments: INJECT 25 UNITS UNDER THE SKIN ONCE DAILY FOR DIABETES @ noon lisinopril 40 mg tablet 40 mg PO BID Label Comments: TAKE ONE TABLET BY MOUTH TWICE A DAY FOR BLOOD PRESSURE latanoprost 0.005 % drops 1 drp EYE-BOTH BEDTIME Label Comments: INSTILL ONE DROP BY MOUTH ONE TIME DAILY IN THE EVENING naproxen 500 mg tablet 500 mg PO BID PRN (Reason: Pain (Scale Score 4-6)) Label Comments: TAKE ONE TABLET BY MOUTH TWICE A DAY NEEDED FOR PAIN; DO NOT TAKE WITH IBUPROFEN OR OTHER NSAIDS oxybutynin chloride 5 mg tablet extended release 24hr 5 mg PO DAILY Label Comments: TAKE ONE TABLET BY MOUTH ONE TIME DAILY Diet/Activity/Treatments Diet: Diet as Tolerated Activity: As tolerated Visit Report/Discharge Packet Instructions: DI for Small Bowel Obstruction Discharge Data Attending Provider: Bayron Howard VTE Deep Vein Thrombosis/Pulmonary Embolism Present on Admission: No
== END 2022-07-14 14:51 | disposition home or self-care (01) ==
LOC: ED 11:59 → AC 15:20
PROVIDERS: Nurse Practitioner Family; Admitting Provider Internal Medicine; Emergency Provider Emergency Medicine; Referring Provider Emergency Medicine; Visit Provider Internal Medicine
DX: R10.9 Unspecified abdominal pain (principal); R14.0 Abdominal distension (gaseous); R11.0 Nausea; E78.5 Hyperlipidemia, unspecified; E87.1 Hypo-osmolality and hyponatremia; I10 Essential (primary) hypertension; U07.1 COVID-19; E11.65 Type 2 diabetes mellitus with hyperglycemia; Z79.4 Long term (current) use of insulin; G47.00 Insomnia, unspecified; E66.3 Overweight; Z68.27 Body mass index [BMI] 27.0-27.9, adult
CPT/HCPCS: 36592; 74177; 80048; 80053; 82962; 83036; 83605; 83690; 83735; 85025; 87635; 93005; 96361; 96372; 96374; 96375; 96376; 99224; 99232; 99284; C9803; G0378; C9113; J1170; J1644; J1815; Q9967